=== PATIENT | male | born 1955 | race Caucasian/White ===

== ENCOUNTER → 2023-04-11 10:31 | Outpatient (BNVA) | payer OTHER, SELFPAY | PROVIDERS: Visit Provider Podiatrist Foot & Ankle Surgery | DX: Q66.211 Congenital metatarsus primus varus, right foot; Q66.212 Congenital metatarsus primus varus, left foot; L84 Corns and callosities | CPT/HCPCS: 99203 ==

== ENCOUNTER → 2023-07-11 09:58 | Outpatient (BNVA) | payer OTHER, SELFPAY | PROVIDERS: Visit Provider Podiatrist Foot & Ankle Surgery | DX: I73.9 Peripheral vascular disease, unspecified (principal); Q66.212 Congenital metatarsus primus varus, left foot; L60.3 Nail dystrophy; Q66.211 Congenital metatarsus primus varus, right foot; L84 Corns and callosities | CPT/HCPCS: 11056; 11721 ==

== ENCOUNTER → 2023-09-12 10:23 | Outpatient (BNVA) | payer OTHER, SELFPAY | PROVIDERS: Visit Provider Podiatrist Foot & Ankle Surgery | DX: Q66.211 Congenital metatarsus primus varus, right foot (principal); Q66.212 Congenital metatarsus primus varus, left foot; L84 Corns and callosities; L60.3 Nail dystrophy; I73.9 Peripheral vascular disease, unspecified | CPT/HCPCS: 11056; 11721 ==

== ENCOUNTER → 2023-11-14 11:29 | Outpatient (BNVA) | payer OTHER, SELFPAY | PROVIDERS: Visit Provider Podiatrist Foot & Ankle Surgery | DX: Q66.211 Congenital metatarsus primus varus, right foot (principal); Q66.212 Congenital metatarsus primus varus, left foot; I73.9 Peripheral vascular disease, unspecified; L84 Corns and callosities; L60.3 Nail dystrophy | CPT/HCPCS: 73630; 99213 ==

== ENCOUNTER → 2024-01-17 10:55 | Outpatient (BNVA) | payer OTHER, SELFPAY | PROVIDERS: Visit Provider Podiatrist Foot & Ankle Surgery | DX: Q66.211 Congenital metatarsus primus varus, right foot (principal); Q66.212 Congenital metatarsus primus varus, left foot; L84 Corns and callosities; L60.3 Nail dystrophy; I73.9 Peripheral vascular disease, unspecified | CPT/HCPCS: 11056; 11721 ==

== ENCOUNTER → 2024-04-15 11:11 | Outpatient (BNVA) | payer OTHER, SELFPAY | PROVIDERS: Visit Provider Podiatrist Foot & Ankle Surgery | DX: L84 Corns and callosities (principal); Q66.211 Congenital metatarsus primus varus, right foot; Q66.212 Congenital metatarsus primus varus, left foot; L60.3 Nail dystrophy; I73.9 Peripheral vascular disease, unspecified | CPT/HCPCS: 11056; 11721 ==

== ENCOUNTER → 2024-07-15 09:42 | Outpatient (BNVA) | payer OTHER, SELFPAY | PROVIDERS: PCP Nurse Practitioner; Visit Provider Podiatrist Foot & Ankle Surgery | DX: I73.9 Peripheral vascular disease, unspecified; L60.3 Nail dystrophy; L84 Corns and callosities; Q66.211 Congenital metatarsus primus varus, right foot; Q66.212 Congenital metatarsus primus varus, left foot | CPT/HCPCS: 11056; 11721; 99213 ==

== ENCOUNTER → 2024-09-08 10:11 | Outpatient (BNVA) | payer OTHER, SELFPAY | PROVIDERS: PCP Nurse Practitioner; Visit Provider Podiatrist Foot & Ankle Surgery | DX: Q66.211 Congenital metatarsus primus varus, right foot; Q66.212 Congenital metatarsus primus varus, left foot; L60.3 Nail dystrophy; I73.9 Peripheral vascular disease, unspecified; L84 Corns and callosities | CPT/HCPCS: 99213 ==

== ENCOUNTER → 2024-11-06 09:38 | Outpatient (BNVA) | payer OTHER, SELFPAY | PROVIDERS: PCP Nurse Practitioner; Visit Provider Podiatrist Foot & Ankle Surgery | DX: I73.9 Peripheral vascular disease, unspecified (principal); L60.3 Nail dystrophy; L84 Corns and callosities; Q66.211 Congenital metatarsus primus varus, right foot; Q66.212 Congenital metatarsus primus varus, left foot | CPT/HCPCS: 11056; 11721 ==

== ENCOUNTER → 2025-01-07 12:35 | Outpatient (BNVA) | payer OTHER, SELFPAY | PROVIDERS: PCP Nurse Practitioner; Visit Provider Podiatrist Foot & Ankle Surgery | DX: I73.9 Peripheral vascular disease, unspecified (principal); L60.3 Nail dystrophy; L84 Corns and callosities; Q66.211 Congenital metatarsus primus varus, right foot; Q66.212 Congenital metatarsus primus varus, left foot | CPT/HCPCS: 11055; 11721 ==

== ENCOUNTER → 2025-03-02 11:13 | Outpatient (BNVA) | payer OTHER, SELFPAY | PROVIDERS: PCP Nurse Practitioner; Visit Provider Podiatrist Foot & Ankle Surgery | DX: I73.9 Peripheral vascular disease, unspecified (principal); L60.3 Nail dystrophy; L84 Corns and callosities; Q82.8 Other specified congenital malformations of skin; Q66.211 Congenital metatarsus primus varus, right foot; Q66.212 Congenital metatarsus primus varus, left foot | CPT/HCPCS: 11056; 11721 ==

== ENCOUNTER → 2025-05-05 10:53 | Outpatient (BNVA) | payer OTHER, SELFPAY | PROVIDERS: PCP Nurse Practitioner; Visit Provider Podiatrist Foot & Ankle Surgery | DX: I73.9 Peripheral vascular disease, unspecified (principal); L60.3 Nail dystrophy; Q82.8 Other specified congenital malformations of skin; L60.8 Other nail disorders; Q66.211 Congenital metatarsus primus varus, right foot; Q66.212 Congenital metatarsus primus varus, left foot; L84 Corns and callosities | CPT/HCPCS: 11055; 11721 ==

== ENCOUNTER → 2025-07-07 10:25 | Outpatient (BNVA) | payer OTHER, SELFPAY | PROVIDERS: PCP Nurse Practitioner; Visit Provider Podiatrist Foot & Ankle Surgery | DX: I73.9 Peripheral vascular disease, unspecified (principal); L60.3 Nail dystrophy; L84 Corns and callosities; L60.8 Other nail disorders; Q66.211 Congenital metatarsus primus varus, right foot; Q66.212 Congenital metatarsus primus varus, left foot | CPT/HCPCS: 11057; 11721 ==